=== PATIENT | female | born 1970 | race Caucasian/White ===

== ENCOUNTER 2018-09-05 03:34 | Emergency (ER) | payer MEDICAID ==
[2005-08-08 19:04] VITALS: BP 100/63
[~2018-09-05] VITALS: Ht 154.9 cm; Wt 69.1 kg
[~2018-09-05 03:34] MED LIST: CELEXA40 MG PO; ELAVIL10 MG PO; FLEXERIL10 MG PO; FORTAMET500 MG PO; LORTAB 7.5/5001 TAB PO; NOVOLOG 100U100 U/ML SQ; PERCOCET 5/321 UDTAB PO; PHENERGAN 25 TA25 MG PO; TOPAMAX 100MG100 MG PO; TYLENOL 325MG325 MG PO; VENTOLIN0.09 MG IH; XANAX0.5 MG PO; ZOLOFT100 MG PO
[2018-09-05 03:38] VITALS: TEMP 98.7
[2018-09-05 04:35] LABS: COLLECTION METHOD CLEAN CATCH
[2018-09-05 04:39] LABS: BASO # 0.1 (0.0-0.2); BASO % 0.7 % (0.0-2.0); EOS # 1.2 (0.0-0.7); EOS % 8.7 % (0-4.0); GRAN # 9.7 (1.4-6.5); GRAN % 72.2 % (42.2-75.2); HEMATOCRIT 48.7 % (37.0-47.0); LYMPH # 1.8 (1.2-3.4); LYMPH % 13.2 % (20.0-51.0); MEAN CELL VOLUME 90 fl (80.0-100.0); MEAN CORPUSCULAR HEMOGLOBIN 32 pg (27.0-31.0); MEAN CORPUSCULAR HGB CONC 35 g/dl (33.0-37.0); MEAN PLATELET VOLUME 8.9 fl (7.4-10.4); MONO # 0.6 (0.1-0.6); MONO % 4.3 % (1.7-9.3); PLATELET COUNT 339 K/mm3 (130-400); RED BLOOD COUNT 5.39 M/mm3 (4.10-5.30); REDCELL DISTRIBUTION WIDTH-CV 13.7 % (11.5-14.5)
[2018-09-05 04:53] LABS: ALBUMIN 4.4 gm/dL (3.5-5.0); BILIRUBIN,TOTAL 0.8 mg/dL (0.0-1.0); CALCIUM 9.4 mg/dL (8.4-10.2); CREATININE, serum 1.05 mg/dL (0.52-1.25); POTASSIUM 3.8 mmol/L (3.4-5.0)
[2018-09-05 05:02] LABS: BUDDING YEAST Present /hpf; MUCOUS Present /lpf; PH 5 (5-8); SQUAMOUS EPITHELIAL 20-50 /hpf; URINE APPEARANCE Cloudy; URINE BACTERIA None Seen /hpf; URINE BILIRUBIN Negative (NEGATIVE); URINE BLOOD 1+ (NEGATIVE); URINE COLOR Amber; URINE GLUCOSE Negative (NEGATIVE); URINE KETONE Trace (NEGATIVE); URINE LEUKOCYTE ESTERASE 2+ (NEGATIVE); URINE NITRATE Positive (NEGATIVE); URINE PROTEIN(semi-quant) 2+ (NEGATIVE); URINE RBC >50 /hpf
[2018-09-05 07:22] LABS: COLLECTION METHOD CATHETER
[2018-09-05] MEDS ORDERED: ZOFRAN ODT4 MG PO (07:30)
[2018-09-05] MEDS ORDERED: OMNICEF 300MG300 MG PO (07:30)
[2018-09-05 07:31] LABS: BUDDING YEAST Present /hpf; MUCOUS Present /lpf; PH 5 (5-8); SQUAMOUS EPITHELIAL 0-2 /hpf; URINE APPEARANCE Cloudy; URINE BACTERIA None Seen /hpf; URINE BILIRUBIN Negative (NEGATIVE); URINE BLOOD 1+ (NEGATIVE); URINE COLOR Amber; URINE GLUCOSE 1+ (NEGATIVE); URINE KETONE 1+ (NEGATIVE); URINE LEUKOCYTE ESTERASE 3+ (NEGATIVE); URINE NITRATE Negative (NEGATIVE); URINE PROTEIN(semi-quant) 2+ (NEGATIVE); URINE RBC 20-50 /hpf
[2018-09-05 08:30] VITALS: BP 104/62; PULSE 67
== END 2018-09-05 08:36 | disposition home or self-care (01) ==
LOC: COL.ER 03:34
PROVIDERS: Emergency Medicine
DX: K59.00 Constipation, unspecified (principal); N12 Tubulo-interstitial nephritis, not specified as acute or chronic; E11.9 Type 2 diabetes mellitus without complications; Z90.710 Acquired absence of both cervix and uterus; Z90.49 Acquired absence of other specified parts of digestive tract; Z90.89 Acquired absence of other organs
CPT/HCPCS: J0696; J2405; J7030

== ENCOUNTER 2020-01-24 15:13 | Inpatient (IN) | payer MEDICAID ==
[~2020-01-24] VITALS: Ht 154.9 cm; Wt 68.6 kg
[~2020-01-24 15:13] MED LIST changes: +OMNICEF 300MG300 MG PO; +ZOFRAN ODT4 MG PO
[2020-01-24 16:18] LABS: BASO # 0.1 (0.0-0.2); BASO % 1.5 % (0.0-2.0); EOS # 0.3 (0.0-0.7); EOS % 3.1 % (0-4.0); GRAN # 5.7 (1.4-6.5); GRAN % 66.6 % (42.2-75.2); HEMOGLOBIN 13.6 g/dl (12.5-16.0); LYMPH # 1.8 (1.2-3.4); LYMPH % 21.3 % (20.0-51.0); MEAN CELL VOLUME 90 fl (80.0-100.0); MEAN CORPUSCULAR HEMOGLOBIN 28 pg (27.0-31.0); MEAN CORPUSCULAR HGB CONC 31 g/dl (33.0-37.0); MEAN PLATELET VOLUME 9.3 fl (7.4-10.4); MONO # 0.6 (0.1-0.6); MONO % 7.3 % (1.7-9.3); PLATELET COUNT 284 K/mm3 (130-400); REDCELL DISTRIBUTION WIDTH-CV 14.4 % (11.5-14.5)
[2020-01-24 16:25] LABS: INR 1.3 (0.8-3.0); PROTHROMBIN TIME 15.1 SECONDS (9.7-12.8)
[2020-01-24 16:32] LABS: CALCIUM 9.2 mg/dL (8.4-10.2); CREATININE, serum 0.79 (0.52-1.25); POTASSIUM 3.3 mmol/L (3.4-5.0); TOTAL PROTEIN 7.2 gm/dL (6.4-8.2)
[2020-01-24 16:43] LABS: TROPONIN-I 0.014 ng/mL (0.000-0.035)
[2020-01-24] MEDS ORDERED: PROTONIX 40MG T40 MG PO (18:10)
[2020-01-24] MEDS ORDERED: DESYREL 50MG50 MG PO (18:10)
--- NOTE | 2020-01-24 19:15 | NUR ---
Received report from Odette. Seen patient awake, sitting on bed. With INT on left AC. Patient is a bit emotional and states she has anxiety and takes medication for that. She asked as well if she can go down to smoke. This nurse and Odette told the patient she can't smoke but we can ask for a nicotine patch. Patient is alert and oriented. Her home health nurse is on the bedside. Call light within reach.
--- NOTE | 2020-01-24 19:45 | NUR ---
Patient is about to have her CT of the Chest when the [facility] called this nurse saying the patient has allergic to contrast and they will not do the CT. This nurse called BRAND LEADER Mary about the allergic reaction of the patient. Patient states she had the contrast few years ago and she remembered throwing up as a reaction. Mary asked this nurse to tell the patient if it's okay to pre-medicate her before doing the CT scan and the patient agreed. Informed [facility] thru phone that Mary just ordered pre-medications to prevent the patient for vomiting and it should be good to proceed with the Chest CT.
--- NOTE | 2020-01-24 20:50 | NUR ---
Patient was back at her room via wheelchair, assisted by Risktail. Patient states she felt nauseous awhile ago but she's fine right now.
[2020-01-24 21:55] VITALS: BP 95/57; PULSE 92; TEMP 97.4
[2020-01-24] MEDS ORDERED: LYRICA 100MG C100 M1 PO (23:00)
[2020-01-24] MEDS ORDERED: MAXALT5 MG PO (23:05)
[2020-01-24] MEDS ORDERED: ZOFRAN 4MG T4 MG/TAB PO (23:06)
[2020-01-24] MEDS ORDERED: TOPAMAX 100MG100 M1 PO (23:07)
[2020-01-24 23:34] LABS: PARTIAL THROMBOPLASTIN TIME 39.6 SECONDS (26.0-37.0)
--- NOTE | 2020-01-25 00:35 | NUR ---
Heparin drip started, verified with my charge nurse, Kylah. Patient asked what's the heparin drip for. Explained to patient the result of the Chest CT that there is a thrombus or clot seen.
[2020-01-25 00:49] VITALS: BP 90/57; PULSE 99; TEMP 97.8
[2020-01-25 04:20] VITALS: BP 92/57; PULSE 98; TEMP 97.7
[2020-01-25] MEDS ORDERED: ZOFRAN 4MG T4 MG/TAB PO (04:41)
[2020-01-25] MEDS ORDERED: FLECTOR1.3% (04:42)
[2020-01-25] MEDS ORDERED: ALBUTEROL1.25 MG/3 INH (04:57)
[2020-01-25] MEDS ORDERED: ATROVENT I0.2 MG/1 M INH (04:58)
[2020-01-25] MEDS ORDERED: PROAIR DIGIHAL90 MCG INH (04:59)
[2020-01-25] MEDS ORDERED: NAPROSYN500 MG PO (05:03)
[2020-01-25 07:25] VITALS: BP 90/64; PULSE 91; TEMP 97.9
--- NOTE | 2020-01-25 07:31 | NUR ---
Endorsed patient to Jessica. Verified with her new heparin drip rate changed by pharmacy. Patient has uneventful night. No complains of shortness of breath.
[2020-01-25 08:13] LABS: BASO # 0.1 (0.0-0.2); BASO % 1.2 % (0.0-2.0); GRAN # 5.4 (1.4-6.5); GRAN % 81.9 % (42.2-75.2); HEMATOCRIT 41.3 % (37.0-47.0); HEMOGLOBIN 12.6 g/dl (12.5-16.0); LYMPH # 0.9 (1.2-3.4); LYMPH % 13.7 % (20.0-51.0); MEAN CELL VOLUME 89 fl (80.0-100.0); MEAN CORPUSCULAR HEMOGLOBIN 27 pg (27.0-31.0); MEAN CORPUSCULAR HGB CONC 31 g/dl (33.0-37.0); MEAN PLATELET VOLUME 10.1 fl (7.4-10.4); MONO # 0.2 (0.1-0.6); MONO % 2.6 % (1.7-9.3); PLATELET COUNT 239 K/mm3 (130-400); RED BLOOD COUNT 4.63 M/mm3 (4.10-5.30); REDCELL DISTRIBUTION WIDTH-CV 14.1 % (11.5-14.5)
[2020-01-25 08:21] LABS: ANION GAP 12 mmol/L (7-16); BLOOD UREA NITROGEN 10 mg/dL (7-17); CARBON DIOXIDE 20 mmol/L (22-30); CHLORIDE 108 mmol/L (98-107); CREATININE, serum 0.65 (0.52-1.25); GLUCOSE 361 mg/dL (74-106); POTASSIUM 4.1 mmol/L (3.4-5.0); SODIUM 139 mmol/L (137-145)
--- NOTE | 2020-01-25 08:24 | NUR ---
Shift report received from neon sign mechanic RN, Nate. At time of assessment, patient is sitting up awake in bed, student nurse is doing her morning assessment. This RN follows up behind student nurse to verify assessment results. Patient does not complain of pain or discomfort at the moment. Heparin is stopped at this time, per protocol. Hep XA result 0.87. Will restart infusion at 0924 and decrease by 2 ml/hr per protocol. Seizure pads provided at this time, as patient states her last seizure occurred 4 nights ago.
[2020-01-25 08:28] LABS: TROPONIN-I < 0.012 ng/mL (0.000-0.035)
--- NOTE | 2020-01-25 09:24 | NUR ---
Hep X a result 0.87 this morning. Heparin 12 ml/hr stopped at 0824 and restarted at 0924 at 10 ml/hr per protocol. Will recheck Hep xA in 6 hours.
--- NOTE | 2020-01-25 11:11 | NUR ---
ROOSEVELT met with the patient and her friend/personal property assessor, Gissell Rubio (ph#[phone]), to discuss discharge plan. The patient lives alone in [place]. She reports independence with ADLs and has a cane, walker, rolaider, and wheelchair. She also has a personal property assessor for ten hours a week from [facility]. The patient's PCP is Dr. Lizzette Lombardi and she receives her medications by delivery from [facility]. She reports no difficulties obtaining her meds. The patient does not have advanced directives in EMR, but she states that she has the documents filled out. She states that she just needs to get them notarized. ROOSEVELT informed the patient that they can get them notarized here, if Gissell brings them in. The patient states that she is designating Gissell as her DPOA-HC. The patient plans to return home and resume services with [facility] upon discharge. The patient informed me that she has separation anxiety and some PTSD. ROOSEVELT discussed talk therapy. The patient reports that she has done this in the past and was interested in a list of the different mental health providers in [place] and [place]. SW provided the patient with that list. No other additional needs at this time, but SW to continue to follow as needed.
--- NOTE | 2020-01-25 11:19 | NUR ---
Initial visit; Patient thanked It Infrastructure Engineer for looking in on her and offering spiritual care, especially keeping her in It Infrastructure Engineer's prayers.
[2020-01-25 11:22] VITALS: BP 110/72; PULSE 89; TEMP 97.8
[2020-01-25 17:51] VITALS: BP 81/51; PULSE 100; TEMP 97.9
--- NOTE | 2020-01-25 18:21 | NUR ---
Patient is currently sitting in bed, visiting with her friend who is at the bedside and who has been here for the majority of the day. Patient states her headache from earlier has subsided and she is awaiting her dinner tray. Patient's BP is still running low (90's/50's) but patient remains asymptomatic and says this is baseline for her. Patient is up independelty in the room and walking in the halls. She will be NPO at midnight tonight.
[2020-01-25 21:57] VITALS: BP 84/59; PULSE 102; TEMP 98.1
--- NOTE | 2020-01-25 22:16 | NUR ---
Pt doing well. In room with family member. Alert and oriented with VSS. Pt is ind in room. Heart and lung sounds normal. Pt denies being SOB or chest pain at this moment. Pt on hep drip running at 10/hr. Tolerating well. IV to L AC. Bowel sounds active all quadrants. PT does have BLE 1+edema. Pt NPO at midnight to have cardiac cath done in am. Pt denies needs. Call light within reach, will continue to montir
--- NOTE | 2020-01-25 22:21 | NUR ---
Pt states her BP are usually lower and this is stable for her. Hospitalist knows and states to continue to monitor
[2020-01-26] VITALS (305 sets, daily range): BP systolic 81–115; BP diastolic 53–90; PULSE 33–109; TEMP 97.3–98; O2SAT 92–100
--- NOTE | 2020-01-26 00:44 | NUR ---
Pt reports she was sitting up dina cross in bed, and then stated she felt numbness in her right leg. It is more swollen than her left. 1+pitting. pedal pulse strong and present. states she has some SOB but not chest pain, not pain radiating to arm. alert and orientee x4 and vss
--- NOTE | 2020-01-26 00:49 | NUR ---
hospitalist notifed of pt's condition. will continue to monitor
[2020-01-26 04:09] LABS: HEMATOCRIT 40.2 % (37.0-47.0); HEMOGLOBIN 12.4 g/dl (12.5-16.0); MEAN CELL VOLUME 89 fl (80.0-100.0); MEAN CORPUSCULAR HEMOGLOBIN 27 pg (27.0-31.0); MEAN CORPUSCULAR HGB CONC 31 g/dl (33.0-37.0); PLATELET COUNT 251 K/mm3 (130-400); RED BLOOD COUNT 4.53 M/mm3 (4.10-5.30); REDCELL DISTRIBUTION WIDTH-CV 14.3 % (11.5-14.5)
[2020-01-26 04:20] LABS: CALCIUM 9.4 mg/dL (8.4-10.2); CREATININE, serum 0.85 (0.52-1.25); POTASSIUM 3.5 mmol/L (3.4-5.0)
--- NOTE | 2020-01-26 13:49 | NUR ---
SEE MERGE DOCUMENTATION FOR MEDICATION ADMINISTRATION AND INTRA POST PROCEDURE SEDATION ASSESSMENTS.
--- NOTE | 2020-01-26 15:40 | NUR ---
During morning assessment patient A/O, Complained of SOB. Patient had blood pressure of 81/60. Dr. Hooks and Dr. Hernández was informed. Dr. Hernández put an order in for 250Ml/hr BOLUS. Dr Hooks requested the fluid to be stopped. Fluid was discontinued few minutes after it was started. Patient HepXA was elevated to 0.93. Heparin drip discontinued per protocol. both doctors was informed. Patient signed consent form for Heart catherization. Dr Hooks approved lasix 20mg administeration. Patient was transferred to ICU from laboratory equipment cleaner. Lining Ironer sales support representative said patient is not doing good at this time and PCI will be performed on Friday on the patient.
--- NOTE | 2020-01-26 17:30 | NUR ---
I reviewed chest x ray on [facility] and PICC tip location is right atrium. PICC dressing change done with sterile technique with insertion site cleansed with chloraprep x 1, catheter pulled back 2 cm to 1 cm marking on catheter. chlorhexidine impregnated disk applied, skin prep, stat lock, and tegaderm applied. RN informed.
--- NOTE | 2020-01-26 19:31 | NUR ---
Report given to Saturnino WOODS and care transfered.
[2020-01-27] VITALS (651 sets, daily range): BP systolic 95–126; BP diastolic 58–94; PULSE 86–99; TEMP 97.6–98.6; O2SAT 90–100
[2020-01-27 06:24] LABS: BASO % 0.2 % (0.0-2.0); GRAN # 7.3 (1.4-6.5); HEMATOCRIT 40.5 % (37.0-47.0); HEMOGLOBIN 12.3 g/dl (12.5-16.0); LYMPH # 1.5 (1.2-3.4); LYMPH % 16.2 % (20.0-51.0); MEAN CELL VOLUME 89 fl (80.0-100.0); MEAN CORPUSCULAR HEMOGLOBIN 27 pg (27.0-31.0); MEAN CORPUSCULAR HGB CONC 30 g/dl (33.0-37.0); MEAN PLATELET VOLUME 10.3 fl (7.4-10.4); MONO # 0.5 (0.1-0.6); PLATELET COUNT 232 K/mm3 (130-400); RED BLOOD COUNT 4.53 M/mm3 (4.10-5.30); REDCELL DISTRIBUTION WIDTH-CV 14.3 % (11.5-14.5)
[2020-01-27 06:34] LABS: CALCIUM 9.6 mg/dL (8.4-10.2); CREATININE, serum 0.81 (0.52-1.25); POTASSIUM 3.7 mmol/L (3.4-5.0)
--- NOTE | 2020-01-27 09:54 | NUR ---
RAISSA student attended clinical rounds with the team. The patient is to have a cardiac cath with sent placement tomorrow, Friday, 01/28. on site services specialist will continue to monitor for discharge recommendations.
--- NOTE | 2020-01-27 11:26 | NUR ---
First visit from the concessions manager. No needs right now.
[2020-01-27] MEDS ORDERED: NORCO 325 MG-51 TAB PO (17:18)
--- NOTE | 2020-01-27 19:15 | NUR ---
Anesthesia bedside to eval pt for tomorrows cardiac cath.
[2020-01-28] VITALS (372 sets, daily range): BP systolic 99–106; BP diastolic 68–86; PULSE 78–99; TEMP 97.6–98.4; O2SAT 88–100
[2020-01-28 05:09] LABS: BASO # 0.1 (0.0-0.2); BASO % 1.1 % (0.0-2.0); EOS # 0.2 (0.0-0.7); EOS % 1.9 % (0-4.0); GRAN # 7.8 (1.4-6.5); GRAN % 66.1 % (42.2-75.2); HEMATOCRIT 42.9 % (37.0-47.0); HEMOGLOBIN 13.6 g/dl (12.5-16.0); LYMPH # 2.9 (1.2-3.4); LYMPH % 24.8 % (20.0-51.0); MEAN CELL VOLUME 86 fl (80.0-100.0); MEAN CORPUSCULAR HEMOGLOBIN 27 pg (27.0-31.0); MEAN CORPUSCULAR HGB CONC 32 g/dl (33.0-37.0); MEAN PLATELET VOLUME 9.6 fl (7.4-10.4); MONO # 0.7 (0.1-0.6); MONO % 5.5 % (1.7-9.3); PLATELET COUNT 274 K/mm3 (130-400); RED BLOOD COUNT 4.97 M/mm3 (4.10-5.30); REDCELL DISTRIBUTION WIDTH-CV 14.2 % (11.5-14.5)
[2020-01-28 05:24] LABS: ALBUMIN 4.3 gm/dL (3.5-5.0); BILIRUBIN,TOTAL 1.7 mg/dL (0.0-1.0); CALCIUM 10.3 mg/dL (8.4-10.2); CREATININE, serum 0.8 (0.52-1.25); TOTAL PROTEIN 7.5 gm/dL (6.4-8.2)
--- NOTE | 2020-01-28 08:30 | NUR ---
PICC intact right upper arm. Chlorhexidine disc had reddish drainage. With sterile technique right upper arm PICC dressing change done with insertion site cleansed with ChloraPrep 1, chlorhexidine impregnated disc applied, skin prep, StatLock, and Tegaderm applied. No signs or symptoms of IV complications noted. No concerns voiced.
--- NOTE | 2020-01-28 10:00 | NUR ---
DR. GIBBS COMES TO SEE PATIENT AT THIS TIME. THEY DISCUSS HOLDING OFF ON HEART CATH AND TRANSFERRING TO FOR FURTHER TREATMENT.
--- NOTE | 2020-01-28 11:25 | NUR ---
The patient is to transfer to [facility] for further care this day. There are no additional needs at this time.
--- NOTE | 2020-01-28 13:00 | NUR ---
Report called to CHUCK Blas in CICU at [facility].
--- NOTE | 2020-01-28 13:20 | NUR ---
[facility] here to get patient. Report given to Antony Jet Pilot. Patient leaves with [facility] at this time.
== END 2020-01-28 13:20 | disposition home or self-care (01) | DRG 640 ==
LOC: COL.ER 15:13 → MEDICAL 16:52 → ICU 01-26 15:27
PROVIDERS: Emergency Medicine; Nurse Practitioner Family; Physician Assistant; ADMIT Student in an Organized Health Care Education/Training Program
PROC: 5A1D70Z Performance of Urinary Filtration, Intermittent, Less than 6 Hours Per Day (ICD-10-PCS; principal; 2020-01-25)
DX: E87.70 Fluid overload, unspecified (principal); N18.6 End stage renal disease; I16.1 Hypertensive emergency; I12.0 Hypertensive chronic kidney disease with stage 5 chronic kidney disease or end stage renal disease; J90 Pleural effusion, not elsewhere classified; D63.1 Anemia in chronic kidney disease; E66.9 Obesity, unspecified; I51.7 Cardiomegaly; F91.9 Conduct disorder, unspecified; Z56.0 Unemployment, unspecified; Z91.15 Patient's noncompliance with renal dialysis; Z87.891 Personal history of nicotine dependence
CPT/HCPCS: 99222-AI; 99233-AI; 99239; A4314; C1751; C1894; C8924; J1200; J1644; J1650; J1815; J1940; J2060; J2250; J2405; J2930; J3010; J3480; J7050; J7512; Q9967

== ENCOUNTER 2020-10-12 20:45 | Emergency (ER) | payer MEDICAID ==
[2005-08-08 19:04] VITALS: BP 100/63
[~2020-10-12 20:45] MED LIST changes: +ALBUTEROL1.25 MG/3 INH; +ATROVENT I0.2 MG/1 M INH; +DESYREL 50MG50 MG PO; +FLECTOR1.3%; +LYRICA 100MG C100 M1 PO; +MAXALT5 MG PO; +NAPROSYN500 MG PO; +NORCO 325 MG-51 TAB PO; +PROAIR DIGIHAL90 MCG INH; +PROTONIX 40MG T40 MG PO; +TOPAMAX 100MG100 M1 PO; +ZOFRAN 4MG T4 MG/TAB PO
[2020-10-12 20:50] VITALS: TEMP 97.6
[2020-10-12 22:04] LABS: BASO # 0.1 (0.0-0.2); BASO % 0.6 % (0.0-2.0); EOS # 0.2 (0.0-0.7); EOS % 1.4 % (0-4.0); HEMATOCRIT 38.2 % (37.0-47.0); HEMOGLOBIN 12.4 g/dl (12.5-16.0); LYMPH # 2.3 (1.2-3.4); LYMPH % 15.5 % (20.0-51.0); MEAN CELL VOLUME 83 fl (80.0-100.0); MEAN CORPUSCULAR HEMOGLOBIN 27 pg (27.0-31.0); MEAN CORPUSCULAR HGB CONC 33 g/dl (33.0-37.0); MEAN PLATELET VOLUME 9.6 fl (7.4-10.4); PLATELET COUNT 279 K/mm3 (130-400); RED BLOOD COUNT 4.63 M/mm3 (4.10-5.30); REDCELL DISTRIBUTION WIDTH-CV 14.9 % (11.5-14.5)
[2020-10-12] MEDS ORDERED: LASIX 40MG TABL40 MG PO (22:57)
[2020-10-12] MEDS ORDERED: ATIVAN 0.50.5 MG/TAB PO (22:59)
[2020-10-12] MEDS ORDERED: K-DUR20 MEQ PO (23:06)
[2020-10-12] MEDS ORDERED: CORDARONE200 MG/TAB PO (23:07)
[2020-10-12] MEDS ORDERED: ASPIRIN 81M81 MG/TA2 PO (23:07)
[2020-10-12] MEDS ORDERED: ALDACTONE 25MG25 M1 PO (23:08)
[2020-10-12] MEDS ORDERED: PRINIVIL2.5 MG PO (23:08)
[2020-10-12] MEDS ORDERED: SINGULAIR 110 MG/TAB PO (23:09)
[2020-10-12] MEDS ORDERED: COUMADIN 6MG6 MG/TAB PO (23:12)
[2020-10-12] MEDS ORDERED: NICODERM C21 MG/PATC TD (23:12)
[2020-10-12] MEDS ORDERED: TOPROL XL 25MG25 MG PO (23:13)
[2020-10-12] MEDS ORDERED: [UNRECOGNIZED DRUG - OTHER] IV (23:14)
[2020-10-12 23:58] LABS: ALANINE AMINOTRANSFERASE 17 U/L (4-34); ALBUMIN 4.5 gm/dL (3.5-5.0); ALKALINE PHOSPHATASE 69 U/L (50-136); ANION GAP 12 mmol/L (7-16); AST,SGOT 25 U/L (15-37); BILIRUBIN,TOTAL 0.5 mg/dL (0.0-1.0); BLOOD UREA NITROGEN 37 mg/dL (7-17); CALCIUM 8.9 mg/dL (8.4-10.2); CARBON DIOXIDE 22 mmol/L (22-30); CHLORIDE 100 mmol/L (98-107); CREATININE, serum 3.27 (0.52-1.25); GLUCOSE 159 mg/dL (74-106); POTASSIUM 3.9 mmol/L (3.4-5.0); SODIUM 134 mmol/L (137-145); TOTAL PROTEIN 7.6 gm/dL (6.4-8.2)
[2020-10-13 00:10] LABS: TROPONIN-I < 0.012 ng/mL (0.000-0.035)
[2020-10-13 00:56] LABS: COLLECTION METHOD CLEAN CATCH
[2020-10-13 01:11] LABS: HYALINE CAST >12 /lpf; MUCOUS Present /lpf; PH 5 (5-8); URINE APPEARANCE Cloudy; URINE BACTERIA Rare /hpf; URINE BILIRUBIN Negative (NEGATIVE); URINE BLOOD Negative (NEGATIVE); URINE COLOR Yellow; URINE GLUCOSE Negative (NEGATIVE); URINE KETONE Negative (NEGATIVE); URINE LEUKOCYTE ESTERASE Trace (NEGATIVE); URINE NITRATE Negative (NEGATIVE); URINE PROTEIN(semi-quant) 1+ (NEGATIVE); URINE UROBILINOGEN Negative (NEGATIVE)
[2020-10-13 02:20] VITALS: BP 81/61; PULSE 67
[2020-10-13] MEDS ORDERED: MACROBID 1100 MG/CAP PO (02:31)
== END 2020-10-13 02:20 | disposition left against medical advice (07) ==
LOC: COL.ER 20:45
PROVIDERS: Emergency Medicine
DX: I95.9 Hypotension, unspecified (principal); I25.10 Atherosclerotic heart disease of native coronary artery without angina pectoris; J45.909 Unspecified asthma, uncomplicated; I50.9 Heart failure, unspecified; I25.2 Old myocardial infarction; G40.909 Epilepsy, unspecified, not intractable, without status epilepticus; F17.210 Nicotine dependence, cigarettes, uncomplicated; Z86.73 Personal history of transient ischemic attack (TIA), and cerebral infarction without residual deficits; Z90.710 Acquired absence of both cervix and uterus; Z88.1 Allergy status to other antibiotic agents; Z79.82 Long term (current) use of aspirin; Z79.01 Long term (current) use of anticoagulants; Z95.0 Presence of cardiac pacemaker; Z95.9 Presence of cardiac and vascular implant and graft, unspecified
CPT/HCPCS: J7030

== ENCOUNTER 2021-02-21 11:19 | Emergency (ER) | payer MEDICAID ==
[2005-08-08 19:04] VITALS: BP 100/63
[~2021-02-21] VITALS: Ht 154.9 cm; Wt 66.8 kg
[~2021-02-21 11:19] MED LIST changes: +ALDACTONE 25MG25 M1 PO; +ASPIRIN 81M81 MG/TA2 PO; +ATIVAN 0.50.5 MG/TAB PO; +CORDARONE200 MG/TAB PO; +COUMADIN 6MG6 MG/TAB PO; +K-DUR20 MEQ PO; +LASIX 40MG TABL40 MG PO; +MACROBID 1100 MG/CAP PO; +NICODERM C21 MG/PATC TD; +PRINIVIL2.5 MG PO; +SINGULAIR 110 MG/TAB PO; +TOPROL XL 25MG25 MG PO; +[UNRECOGNIZED DRUG - OTHER] IV
[2021-02-21 11:27] VITALS: TEMP 97
[2021-02-21 12:04] LABS: ALANINE AMINOTRANSFERASE 38 U/L (4-34); ALBUMIN 4.4 gm/dL (3.5-5.0); ALKALINE PHOSPHATASE 79 U/L (50-136); ANION GAP 9 mmol/L (7-16); AST,SGOT 39 U/L (15-37); BILIRUBIN,TOTAL 0.8 mg/dL (0.0-1.0); BLOOD UREA NITROGEN 12 mg/dL (7-17); CALCIUM 9.9 mg/dL (8.4-10.2); CARBON DIOXIDE 31 mmol/L (22-30); CHLORIDE 98 mmol/L (98-107); GLUCOSE 158 mg/dL (74-106); INR 2.8 (0.8-3.0); LIPASE 58 U/L (23-300); MAGNESIUM 2.1 mg/dL (1.6-2.3); POTASSIUM 3.3 mmol/L (3.4-5.0); PROTHROMBIN TIME 31.7 SECONDS (9.7-12.8); SODIUM 138 mmol/L (137-145); TOTAL PROTEIN 7.9 gm/dL (6.4-8.2)
[2021-02-21 12:17] LABS: TROPONIN-I < 0.012 ng/mL (0.000-0.035)
[2021-02-21 12:20] LABS: BASO # 0.2 (0.0-0.2); BASO % 1.7 % (0.0-2.0); EOS # 0.2 (0.0-0.7); EOS % 2.4 % (0-4.0); GRAN # 6.9 (1.4-6.5); GRAN % 69.8 % (42.2-75.2); HEMATOCRIT 39.6 % (37.0-47.0); HEMOGLOBIN 12.6 g/dl (12.5-16.0); LYMPH # 1.9 (1.2-3.4); MEAN CELL VOLUME 84 fl (80.0-100.0); MEAN CORPUSCULAR HEMOGLOBIN 27 pg (27.0-31.0); MEAN CORPUSCULAR HGB CONC 32 g/dl (33.0-37.0); MEAN PLATELET VOLUME 9.2 fl (7.4-10.4); MONO # 0.7 (0.1-0.6); MONO % 6.7 % (1.7-9.3); PLATELET COUNT 317 K/mm3 (130-400); RED BLOOD COUNT 4.73 M/mm3 (4.10-5.30); REDCELL DISTRIBUTION WIDTH-CV 14.7 % (11.5-14.5)
[2021-02-21 14:59] VITALS: BP 120/69; PULSE 59
== END 2021-02-21 13:30 | disposition left against medical advice (07) ==
LOC: COL.ER 11:19
PROVIDERS: Emergency Medicine
DX: I25.3 Aneurysm of heart (principal); I50.20 Unspecified systolic (congestive) heart failure; I25.10 Atherosclerotic heart disease of native coronary artery without angina pectoris; K21.9 Gastro-esophageal reflux disease without esophagitis; G40.909 Epilepsy, unspecified, not intractable, without status epilepticus; I50.9 Heart failure, unspecified; J45.909 Unspecified asthma, uncomplicated; F41.9 Anxiety disorder, unspecified; G47.00 Insomnia, unspecified; Z87.891 Personal history of nicotine dependence; Z90.89 Acquired absence of other organs; Z90.710 Acquired absence of both cervix and uterus; Z95.0 Presence of cardiac pacemaker; Z95.5 Presence of coronary angioplasty implant and graft; Z86.79 Personal history of other diseases of the circulatory system; Z90.49 Acquired absence of other specified parts of digestive tract; Z88.1 Allergy status to other antibiotic agents; Z91.040 Latex allergy status; Z91.041 Radiographic dye allergy status; Z79.51 Long term (current) use of inhaled steroids; Z79.82 Long term (current) use of aspirin; Z79.01 Long term (current) use of anticoagulants

== ENCOUNTER 2022-01-03 13:54 | Inpatient (IN) | payer MEDICAID ==
[~2022-01-03] VITALS: Ht 154.9 cm; Wt 72.2 kg
[~2022-01-03 13:54] MED LIST changes: +CENA K20 MEQ/15 PO; -K-DUR20 MEQ PO
[2022-01-03 14:31] LABS: BASO # 0.1 K/mm3 (0.0-0.2); BASO % 1.1 % (0.0-2.0); EOS # 0.1 K/mm3 (0.0-0.7); GRAN # 10.1 K/mm3 (1.4-6.5); GRAN % 86.4 % (42.2-75.2); HEMOGLOBIN 9.6 g/dl (12.5-16.0); LYMPH # 0.7 K/mm3 (1.2-3.4); LYMPH % 5.9 % (20.0-51.0); MEAN CELL VOLUME 72 fl (80.0-100.0); MEAN CORPUSCULAR HEMOGLOBIN 21 pg (27-31); MEAN CORPUSCULAR HGB CONC 29 g/dl (33.0-37.0); MEAN PLATELET VOLUME 10.1 fl (7.4-10.4); MONO # 0.6 K/mm3 (0.1-0.6); MONO % 5.1 % (1.7-9.3); PLATELET COUNT 339 K/mm3 (130-400); RED BLOOD COUNT 4.58 M/mm3 (4.10-5.30); REDCELL DISTRIBUTION WIDTH-CV 17.2 % (11.5-14.5)
[2022-01-03 14:59] LABS: ALANINE AMINOTRANSFERASE 36 U/L (0-55); ALKALINE PHOSPHATASE 89 U/L (40-150); ANION GAP 13 mmol/L (7-16); AST,SGOT 51 U/L (5-34); BLOOD UREA NITROGEN 18 mg/dL (10-20); CALCIUM 8.5 mg/dL (8.4-10.2); CARBON DIOXIDE 23 mmol/L (22-29); CHLORIDE 99 mmol/L (98-107); CREATININE, serum 1.01 mg/dL (0.57-1.11); POTASSIUM 3.6 mmol/L (3.5-4.5); SODIUM 135 mmol/L (136-145); TOTAL PROTEIN 7.4 gm/dL (6.2-8.1)
[2022-01-03 15:01] LABS: GLUCOSE 402 mg/dL (70-99)
[2022-01-03 15:06] LABS: TROPONIN-I < 0.010 ng/mL (0.00-0.033)
[2022-01-03] MEDS ORDERED: REQUIP0.25 MG PO (16:05)
[2022-01-03] MEDS ORDERED: DEMADEX 20MG20 M1 PO (16:05)
[2022-01-03] MEDS ORDERED: ZAROXOLYN 2.52.5 MG PO (16:05)
[2022-01-03] MEDS ORDERED: ZANAFLEX2 MG PO (16:06)
[2022-01-03 16:59] VITALS: BP 124/65; PULSE 81; TEMP 97.6
[2022-01-03] MEDS ORDERED: NORCO 325 MG-51 TAB PO (19:10)
[2022-01-03] MEDS ORDERED: PHENERGAN 25 TA25 MG PO (19:10)
[2022-01-03] MEDS ORDERED: NITROSTAT0.4 MG/TAB SL (19:11)
[2022-01-03 19:23] LABS: INR 2.2 (0.8-3.0)
[2022-01-03 19:32] LABS: CALCIUM 8.5 mg/dL (8.4-10.2); CREATININE, serum 1.15 mg/dL (0.57-1.11); MAGNESIUM 1.7 mg/dL (1.6-2.6); POTASSIUM 4.3 mmol/L (3.5-4.5)
[2022-01-03 19:53] VITALS: BP 108/56; PULSE 84; TEMP 98.1
--- NOTE | 2022-01-03 23:34 | NUR ---
Patient assessed around 2114. Alert and oriented, and able to make needs known. Denies pain and discomfort. Peripheral INT to right wrist and left forearm. Lasix drip running to right wrist per orers. Has port to right chest with milrinone running per home orders. Voices no questions, needs, or concerns during assessement. In bed with call light within reach.
[2022-01-03 23:55] VITALS: BP 102/57; PULSE 81; TEMP 98.1
[2022-01-04 00:12] LABS: COLLECTION METHOD CLEAN CATCH
[2022-01-04 00:20] LABS: MUCOUS Present (NOT PRESENT); PH 6 (5-8); SQUAMOUS EPITHELIAL 0-2 /hpf (0-10); URINE APPEARANCE Clear (CLEAR/HAZY); URINE BACTERIA None Seen /hpf (NONE SEEN); URINE BILIRUBIN Negative (NEGATIVE); URINE BLOOD Negative (NEGATIVE); URINE COLOR Yellow (YELLOW); URINE GLUCOSE 3+ (NEGATIVE); URINE KETONE Negative (NEGATIVE); URINE LEUKOCYTE ESTERASE Negative (NEGATIVE); URINE NITRATE Negative (NEGATIVE); URINE PROTEIN(semi-quant) Negative (NEGATIVE); URINE RBC 0-2 /hpf (0-2); URINE UROBILINOGEN Negative (NEGATIVE)
--- NOTE | 2022-01-04 00:21 | NUR ---
Patient has not had any urine output so far this shift. Does not feel like she has to urinate, and was not able to when trying to go to the bathroom. Bladder scan performed showing greater than 650 mls of urine in bladder. Spoke with ANETTE Funez ok to place indwelling cleveland catheter. 800 mls of urine output upon insertion of catheter. Cath secure in place. Tolerated well.
[2022-01-04 04:46] VITALS: BP 114/68; PULSE 74; TEMP 98.7
--- NOTE | 2022-01-04 05:46 | NUR ---
Continues on Lasix drip per orders. Reports she doesn't feel like it is helping much with edema, but is not having any shortness of breath anymore. Voices no questions, needs, or concerns at this time. In bed with call light within reach.
[2022-01-04 06:04] LABS: BASO # 0.2 K/mm3 (0.0-0.2); BASO % 1.3 % (0.0-2.0); EOS # 0.2 K/mm3 (0.0-0.7); EOS % 1.9 % (0.0-4.0); GRAN % 77.9 % (42.2-75.2); LYMPH # 1.4 K/mm3 (1.2-3.4); LYMPH % 11.3 % (20.0-51.0); MEAN CELL VOLUME 73 fl (80.0-100.0); MEAN CORPUSCULAR HGB CONC 28 g/dl (33.0-37.0); MEAN PLATELET VOLUME 10.1 fl (7.4-10.4); MONO # 0.9 K/mm3 (0.1-0.6); MONO % 6.7 % (1.7-9.3); PLATELET COUNT 333 K/mm3 (130-400); REDCELL DISTRIBUTION WIDTH-CV 17.4 % (11.5-14.5)
[2022-01-04 06:23] LABS: HEMATOCRIT 33.4 % (37.0-47.0); HEMOGLOBIN 9.5 g/dl (12.5-16.0); MEAN CORPUSCULAR HEMOGLOBIN 21 pg (27-31)
[2022-01-04 06:24] LABS: CALCIUM 8.7 mg/dL (8.4-10.2); CREATININE, serum 0.89 mg/dL (0.57-1.11); POTASSIUM 3.7 mmol/L (3.5-4.5)
--- NOTE | 2022-01-04 08:59 | NUR ---
Patient sitting in bed upon entering the room, sister is at the bedside. Patient has no concerns/complaints this morning and appears to be doing well. Swelling in legs and abdomen appears to have decreased as compared to yesterday. Bilateral bases of the lungs also sound better as compared to yesterday; Crackles still present, but not as coarse. Patient has cleveland in place and it is draining well. IV lasix gtt still running at the ordered rate.
--- NOTE | 2022-01-04 09:26 | NUR ---
Initial visit; Patient thanked Tram Driver for looking in on her and shared with Tram Driver that she is a Picture Booker. Tram Driver requested that she keep her in her prayers. Tram Driver offered God's blessings.
[2022-01-04 09:56] VITALS: BP 94/52; PULSE 77; TEMP 98.9
--- NOTE | 2022-01-04 10:05 | NUR ---
Rigger Apprentice met with patient to discuss discharge planning and her sister, Gissell (ph#[phone]) is at bedside. Patient lives alone in [place] and sees Dr. Lombardi for primary care. Patient has medications delivered to her home by [facility] with no difficulties. Patient has a walker, rollator, and wheelchair at home but does not normally have to use them. Patient reports she has a service dog at home named John. Patient reports independence with ADLS and reports independence with ADLS. Patient advised her sister, Gissell is her DPOA-HC. Patient has two children: Gracia and Phaunel. Discharge Plan: Home
[2022-01-04 10:27] LABS: MAGNESIUM 1.7 mg/dL (1.6-2.6); POTASSIUM 4.4 mmol/L (3.5-4.5)
[2022-01-04 11:26] VITALS: BP 97/48; PULSE 71; TEMP 97.9
[2022-01-04 17:02] VITALS: BP 97/68; PULSE 78; TEMP 98
--- NOTE | 2022-01-04 18:07 | NUR ---
Patient has done very well today, w/ no complaints or concerns expressed. Orourke is still in place and draining properly. Lasix gtt remains running at ordered rate.
[2022-01-04 19:35] VITALS: BP 97/55; PULSE 79; TEMP 98.3
--- NOTE | 2022-01-04 19:56 | NUR ---
Patient assessed around 193. Alert and oriented, and able to make needs known. Denies SOB and dyspnea, stating she can breathe much better now. LS CTA. HRR. Telemetry in place. BSAx4. Indwelling cleveland catheter with clear yellow urine. Requested catheter to come out. Spoke to ANDREA Reyes, and was ok with catheter being taken out. Catheter removed, tolerated well. 1+ edema BLE. Bruising to forehead and LUE. Voices no further questions, needs, or concerns at this time. In bed with call light within reach. Sister at bedside.
[2022-01-05 01:01] VITALS: BP 106/59; PULSE 75; TEMP 98
[2022-01-05 04:33] VITALS: BP 96/57; PULSE 74; TEMP 98.4
--- NOTE | 2022-01-05 05:29 | NUR ---
Patient has not have the urge to use the bathroom since catheter was pulled out. Had patient try to, and voided 150 mls of clear yellow urine. Post void bladder scan revealed greater than 450 ml of urine in bladder. Called ANDREA Reyes, order received to straight cath. Straight cathed with a result of 500 mls of urine return around 0300. Continues on Lasix drip per orders. Voices no further questions, needs, or concerns at this time. In bed with call light within reach.
[2022-01-05 06:04] LABS: MEAN CELL VOLUME 74 fl (80.0-100.0); MEAN CORPUSCULAR HGB CONC 27 g/dl (33.0-37.0); MEAN PLATELET VOLUME 10.4 fl (7.4-10.4); PLATELET COUNT 332 K/mm3 (130-400); RED BLOOD COUNT 3.65 M/mm3 (4.10-5.30); REDCELL DISTRIBUTION WIDTH-CV 17.1 % (11.5-14.5)
[2022-01-05 06:16] LABS: HEMOGLOBIN 7.4 g/dl (12.5-16.0); MEAN CORPUSCULAR HEMOGLOBIN 20 pg (27-31)
[2022-01-05 06:18] LABS: ALBUMIN 2.8 gm/dL (3.5-5.0); CALCIUM 8.8 mg/dL (8.4-10.2); CREATININE, serum 0.95 mg/dL (0.57-1.11); MAGNESIUM 1.9 mg/dL (1.6-2.6); POTASSIUM 3.8 mmol/L (3.5-4.5)
[2022-01-05 06:27] LABS: BASO # 0.1 K/mm3 (0.0-0.2); BASO % 0.9 % (0.0-2.0); EOS # 0.3 K/mm3 (0.0-0.7); EOS % 1.7 % (0.0-4.0); GRAN # 12.1 K/mm3 (1.4-6.5); GRAN % 81.3 % (42.2-75.2); LYMPH # 1.4 K/mm3 (1.2-3.4); MONO % 6.4 % (1.7-9.3)
[2022-01-05 08:00] VITALS: BP 103/58; PULSE 84; TEMP 98.1
--- NOTE | 2022-01-05 08:00 | NUR ---
Patient sitting up in bed A&Ox4. VSS. IV CDI fluids infusing. Denies pain and discomfort. Patient states that she has sensation of needing to void, nurse assessed with PRV and patient retaining urine. No further needs expressed. Call light within reach
[2022-01-05 08:35] LABS: INR 3.4 (0.8-3.0); PROTHROMBIN TIME 38.6 SECONDS (9.7-12.8)
[2022-01-05] MEDS ORDERED: PACERONE100 MG PO (10:21)
[2022-01-05] MEDS ORDERED: LASIX 40MG TABL40 MG PO (10:23)
[2022-01-05] MEDS ORDERED: GLUCOPHAGE500 MG/TAB PO (10:23)
[2022-01-05] MEDS ORDERED: OMNICEF 300MG300 MG PO (10:26)
[2022-01-05 10:57] VITALS: BP 102/55; PULSE 75; TEMP 98.4
[2022-01-05 15:26] LABS: HEMATOCRIT 32.2 % (37.0-47.0); HEMOGLOBIN 9.2 g/dl (12.5-16.0)
--- NOTE | 2022-01-05 15:56 | NUR ---
Discharge paperwork reviewed with the patient. Patient verbalized an understanding to follow doctors orders. IV removed, tip intact. Central line RT chest, PT own med, CDI. Doctor aware. Patient independent in the room. Denies pain and discomfort. No further needs expressed. Patient taken by wheelchair to the ED entrance.
--- NOTE | 2022-01-05 16:21 | NUR ---
Patient was established with [facility] previously. DC orders faxed to [facility].
== END 2022-01-05 15:55 | disposition home health service (06) | DRG 291 ==
LOC: COL.ER 13:54 → MEDICAL 15:04
PROVIDERS: Emergency Medicine; Nurse Practitioner; Physician Assistant; ADMIT Internal Medicine
DX: I11.0 Hypertensive heart disease with heart failure (principal); I50.23 Acute on chronic systolic (congestive) heart failure; I24.0 Acute coronary thrombosis not resulting in myocardial infarction; I25.3 Aneurysm of heart; I25.10 Atherosclerotic heart disease of native coronary artery without angina pectoris; E11.9 Type 2 diabetes mellitus without complications; M79.7 Fibromyalgia; G40.909 Epilepsy, unspecified, not intractable, without status epilepticus; J45.909 Unspecified asthma, uncomplicated; I48.91 Unspecified atrial fibrillation; K21.9 Gastro-esophageal reflux disease without esophagitis; G47.00 Insomnia, unspecified; F41.9 Anxiety disorder, unspecified; F17.210 Nicotine dependence, cigarettes, uncomplicated; I08.1 Rheumatic disorders of both mitral and tricuspid valves; E11.65 Type 2 diabetes mellitus with hyperglycemia; G43.909 Migraine, unspecified, not intractable, without status migrainosus; I25.5 Ischemic cardiomyopathy; E78.5 Hyperlipidemia, unspecified; R94.31 Abnormal electrocardiogram [ECG] [EKG]; K76.1 Chronic passive congestion of liver; D72.829 Elevated white blood cell count, unspecified; D64.9 Anemia, unspecified; R33.9 Retention of urine, unspecified; Z20.822 Contact with and (suspected) exposure to COVID-19; Z95.810 Presence of automatic (implantable) cardiac defibrillator; I25.2 Old myocardial infarction; Z86.73 Personal history of transient ischemic attack (TIA), and cerebral infarction without residual deficits; Z95.0 Presence of cardiac pacemaker; Z79.01 Long term (current) use of anticoagulants; Z79.82 Long term (current) use of aspirin
CPT/HCPCS: 99223-AI; 99233-AI; 99239; J0456; J0696; J1815; J1940; J7050

== ENCOUNTER 2022-01-07 13:10 | Inpatient (IN) | payer MEDICAID ==
[~2022-01-07] VITALS: Ht 154.9 cm; Wt 63.7 kg
[~2022-01-07 13:10] MED LIST changes: +DEMADEX 20MG20 M1 PO; +GLUCOPHAGE500 MG/TAB PO; +NITROSTAT0.4 MG/TAB SL; +PACERONE100 MG PO; +REQUIP0.25 MG PO; +ZANAFLEX2 MG PO; +ZAROXOLYN 2.52.5 MG PO
[2022-01-07 14:31] LABS: BASO # 0.2 K/mm3 (0.0-0.2); BASO % 0.8 % (0.0-2.0); EOS # 0.1 K/mm3 (0.0-0.7); EOS % 0.3 % (0.0-4.0); GRAN # 16.4 K/mm3 (1.4-6.5); GRAN % 85.9 % (42.2-75.2); LYMPH # 1.1 K/mm3 (1.2-3.4); LYMPH % 5.6 % (20.0-51.0); MEAN CELL VOLUME 74 fl (80.0-100.0); MEAN CORPUSCULAR HGB CONC 28 g/dl (33.0-37.0); MEAN PLATELET VOLUME 10.2 fl (7.4-10.4); MONO # 1.2 K/mm3 (0.1-0.6); MONO % 6.4 % (1.7-9.3); PLATELET COUNT 422 K/mm3 (130-400); RED BLOOD COUNT 4.26 M/mm3 (4.10-5.30)
[2022-01-07 14:34] LABS: HEMATOCRIT 31.4 % (37.0-47.0); HEMOGLOBIN 8.9 g/dl (12.5-16.0); MEAN CORPUSCULAR HEMOGLOBIN 21 pg (27-31)
[2022-01-07 14:48] LABS: ALBUMIN 2.9 gm/dL (3.5-5.0); BILIRUBIN,TOTAL 3.1 mg/dL (0.2-1.2); CALCIUM 8.8 mg/dL (8.4-10.2); CREATININE, serum 1.05 mg/dL (0.57-1.11); TOTAL PROTEIN 7.6 gm/dL (6.2-8.1)
[2022-01-07 14:54] LABS: TROPONIN-I 0.016 ng/mL (0.00-0.033)
[2022-01-07 17:18] VITALS: BP 92/48; PULSE 83; TEMP 98.4
[2022-01-07] MEDS ORDERED: DEMADEX 20MG20 M1 PO (19:23)
[2022-01-07] MEDS ORDERED: VITAMIN D31000 I1 PO (19:25)
[2022-01-07] MEDS ORDERED: UBRELVY50 MG PO (19:27)
[2022-01-07] MEDS ORDERED: LAXATIVE FOR WOM5 MG PO (19:33)
[2022-01-07] MEDS ORDERED: LIDODERM 5% PATC1 EA TP (19:34)
[2022-01-07 20:30] VITALS: BP 157/70; BP 94/50; PULSE 83; TEMP 98.3
[2022-01-07 20:37] LABS: INR 1.5 (0.8-3.0); PROTHROMBIN TIME 16.8 SECONDS (9.7-12.8)
[2022-01-07 22:01] LABS: MAGNESIUM 2.1 mg/dL (1.6-2.6)
[2022-01-07 22:05] LABS: POTASSIUM 2.9 mmol/L (3.5-4.5)
[2022-01-08] VITALS (8 sets, daily range): BP systolic 82–107; BP diastolic 46–57; PULSE 64–86; TEMP 97.6–98.5
[2022-01-08 06:50] LABS: BASO # 0.2 K/mm3 (0.0-0.2); BASO % 1.3 % (0.0-2.0); EOS # 0.3 K/mm3 (0.0-0.7); EOS % 1.9 % (0.0-4.0); GRAN # 10.8 K/mm3 (1.4-6.5); GRAN % 79.6 % (42.2-75.2); LYMPH # 1.3 K/mm3 (1.2-3.4); LYMPH % 9.8 % (20.0-51.0); MEAN CELL VOLUME 73 fl (80.0-100.0); MEAN CORPUSCULAR HGB CONC 28 g/dl (33.0-37.0); MEAN PLATELET VOLUME 10.3 fl (7.4-10.4); MONO # 0.9 K/mm3 (0.1-0.6); MONO % 6.5 % (1.7-9.3); PLATELET COUNT 405 K/mm3 (130-400); RED BLOOD COUNT 4.13 M/mm3 (4.10-5.30); REDCELL DISTRIBUTION WIDTH-CV 17.5 % (11.5-14.5)
[2022-01-08 06:55] LABS: INR 1.5 (0.8-3.0); PROTHROMBIN TIME 16.8 SECONDS (9.7-12.8)
[2022-01-08 07:01] LABS: ALBUMIN 2.7 gm/dL (3.5-5.0); BILIRUBIN,TOTAL 1.6 mg/dL (0.2-1.2); CALCIUM 8.5 mg/dL (8.4-10.2); CREATININE, serum 1.07 mg/dL (0.57-1.11); HEMOGLOBIN 8.4 g/dl (12.5-16.0); MEAN CORPUSCULAR HEMOGLOBIN 20 pg (27-31); POTASSIUM 3.8 mmol/L (3.5-4.5)
[2022-01-09 03:09] VITALS: BP 95/51; PULSE 62; TEMP 97.6
[2022-01-09 06:52] LABS: BASO # 0.1 K/mm3 (0.0-0.2); BASO % 0.8 % (0.0-2.0); EOS # 0.3 K/mm3 (0.0-0.7); GRAN # 10.3 K/mm3 (1.4-6.5); GRAN % 82.5 % (42.2-75.2); LYMPH # 1.1 K/mm3 (1.2-3.4); LYMPH % 8.6 % (20.0-51.0); MEAN CELL VOLUME 75 fl (80.0-100.0); MEAN CORPUSCULAR HGB CONC 28 g/dl (33.0-37.0); MEAN PLATELET VOLUME 10.3 fl (7.4-10.4); MONO # 0.7 K/mm3 (0.1-0.6); MONO % 5.3 % (1.7-9.3); PLATELET COUNT 373 K/mm3 (130-400); RED BLOOD COUNT 3.94 M/mm3 (4.10-5.30); REDCELL DISTRIBUTION WIDTH-CV 17.8 % (11.5-14.5)
[2022-01-09 06:54] LABS: HEMATOCRIT 29.4 % (37.0-47.0); HEMOGLOBIN 8.3 g/dl (12.5-16.0); MEAN CORPUSCULAR HEMOGLOBIN 21 pg (27-31)
[2022-01-09 07:00] LABS: CALCIUM 8.8 mg/dL (8.4-10.2); CREATININE, serum 1.05 mg/dL (0.57-1.11); POTASSIUM 3.8 mmol/L (3.5-4.5)
[2022-01-09 07:03] LABS: PROTHROMBIN TIME 21.8 SECONDS (9.7-12.8)
[2022-01-09 07:20] VITALS: BP 100/61; PULSE 75; TEMP 97.3
[2022-01-09 11:10] VITALS: BP 83/51; PULSE 70; TEMP 97.5
[2022-01-09 16:00] VITALS: BP 97/52; PULSE 74; TEMP 97.6
[2022-01-09 16:20] LABS: CREATININE, serum 1.04 mg/dL (0.57-1.11); MAGNESIUM 2.1 mg/dL (1.6-2.6); POTASSIUM 4.1 mmol/L (3.5-4.5)
[2022-01-09 20:05] VITALS: BP 88/48; PULSE 74; TEMP 97.4
[2022-01-09 23:57] VITALS: BP 102/57; PULSE 75; TEMP 97.4
[2022-01-10 03:34] VITALS: BP 114/65; PULSE 80; TEMP 97.5
[2022-01-10 06:33] LABS: BASO # 0.1 K/mm3 (0.0-0.2); BASO % 0.8 % (0.0-2.0); EOS # 0.2 K/mm3 (0.0-0.7); EOS % 1.5 % (0.0-4.0); GRAN # 9.6 K/mm3 (1.4-6.5); GRAN % 84.8 % (42.2-75.2); LYMPH # 0.8 K/mm3 (1.2-3.4); LYMPH % 7.4 % (20.0-51.0); MEAN CELL VOLUME 74 fl (80.0-100.0); MEAN CORPUSCULAR HGB CONC 28 g/dl (33.0-37.0); MEAN PLATELET VOLUME 10.3 fl (7.4-10.4); MONO # 0.6 K/mm3 (0.1-0.6); PLATELET COUNT 440 K/mm3 (130-400); RED BLOOD COUNT 4.55 M/mm3 (4.10-5.30); REDCELL DISTRIBUTION WIDTH-CV 18.9 % (11.5-14.5)
[2022-01-10 06:39] LABS: HEMATOCRIT 33.7 % (37.0-47.0); HEMOGLOBIN 9.5 g/dl (12.5-16.0); MEAN CORPUSCULAR HEMOGLOBIN 21 pg (27-31)
[2022-01-10 06:47] LABS: CALCIUM 8.8 mg/dL (8.4-10.2); CREATININE, serum 0.98 mg/dL (0.57-1.11); POTASSIUM 3.4 mmol/L (3.5-4.5)
[2022-01-10 07:17] VITALS: BP 104/55; PULSE 84; TEMP 98
[2022-01-10 08:37] LABS: INR 2.6 (0.8-3.0); PROTHROMBIN TIME 29.3 SECONDS (9.7-12.8)
[2022-01-10 11:49] VITALS: BP 89/55; PULSE 70; TEMP 98
[2022-01-10 16:22] VITALS: BP 120/73; PULSE 75; TEMP 97.9
[2022-01-10 20:09] VITALS: BP 92/55; PULSE 80; TEMP 97.6
[2022-01-10 23:24] VITALS: BP 95/54; PULSE 76; TEMP 98.2
[2022-01-11 04:00] VITALS: BP 108/56; PULSE 78; TEMP 97.7
[2022-01-11 06:29] LABS: BASO # 0.1 K/mm3 (0.0-0.2); EOS # 0.2 K/mm3 (0.0-0.7); EOS % 1.9 % (0.0-4.0); GRAN # 8.2 K/mm3 (1.4-6.5); GRAN % 79.9 % (42.2-75.2); LYMPH # 1.1 K/mm3 (1.2-3.4); LYMPH % 10.5 % (20.0-51.0); MEAN CELL VOLUME 74 fl (80.0-100.0); MEAN CORPUSCULAR HGB CONC 28 g/dl (33.0-37.0); MONO # 0.6 K/mm3 (0.1-0.6); MONO % 6.1 % (1.7-9.3); PLATELET COUNT 444 K/mm3 (130-400); RED BLOOD COUNT 4.22 M/mm3 (4.10-5.30); REDCELL DISTRIBUTION WIDTH-CV 18.9 % (11.5-14.5)
[2022-01-11 06:33] LABS: INR 2.9 (0.8-3.0); PROTHROMBIN TIME 32.2 SECONDS (9.7-12.8)
[2022-01-11 06:42] LABS: HEMATOCRIT 31.2 % (37.0-47.0); HEMOGLOBIN 8.8 g/dl (12.5-16.0); MEAN CORPUSCULAR HEMOGLOBIN 21 pg (27-31)
[2022-01-11 06:45] LABS: CALCIUM 8.8 mg/dL (8.4-10.2); CREATININE, serum 0.95 mg/dL (0.57-1.11); POTASSIUM 3.6 mmol/L (3.5-4.5)
[2022-01-11 08:06] VITALS: BP 88/51; PULSE 75; TEMP 97.8
[2022-01-11 11:22] VITALS: BP 99/56; PULSE 69; TEMP 98.5
[2022-01-11] MEDS ORDERED: MONODOX100 PO (12:18)
[2022-01-11] MEDS ORDERED: COUMADIN 2MG2 MG/TAB PO (12:19)
[2022-01-11] MEDS ORDERED: LASIX 40MG TABL40 MG PO (12:21)
[2022-01-11] MEDS ORDERED: OXYGEN (14:34)
[2022-01-11 15:06] VITALS: BP 112/68; PULSE 83; TEMP 98.1
== END 2022-01-11 16:10 | disposition hospice, home (50) | DRG 291 ==
LOC: COL.ER 13:10 → SURG 16:49
PROVIDERS: Emergency Medicine; Internal Medicine; Physician Assistant; ADMIT Internal Medicine
DX: I50.23 Acute on chronic systolic (congestive) heart failure (principal); J96.01 Acute respiratory failure with hypoxia; J18.9 Pneumonia, unspecified organism; I24.0 Acute coronary thrombosis not resulting in myocardial infarction; I25.3 Aneurysm of heart; I25.10 Atherosclerotic heart disease of native coronary artery without angina pectoris; M79.7 Fibromyalgia; G40.909 Epilepsy, unspecified, not intractable, without status epilepticus; J45.909 Unspecified asthma, uncomplicated; I48.91 Unspecified atrial fibrillation; K21.9 Gastro-esophageal reflux disease without esophagitis; G47.00 Insomnia, unspecified; F41.9 Anxiety disorder, unspecified; Z66 Do not resuscitate; F17.210 Nicotine dependence, cigarettes, uncomplicated; E11.65 Type 2 diabetes mellitus with hyperglycemia; G43.909 Migraine, unspecified, not intractable, without status migrainosus; I25.5 Ischemic cardiomyopathy; I08.1 Rheumatic disorders of both mitral and tricuspid valves; D50.9 Iron deficiency anemia, unspecified; Z20.822 Contact with and (suspected) exposure to COVID-19; I25.2 Old myocardial infarction; Z86.73 Personal history of transient ischemic attack (TIA), and cerebral infarction without residual deficits; Z95.0 Presence of cardiac pacemaker; Z79.82 Long term (current) use of aspirin; Z79.84 Long term (current) use of oral hypoglycemic drugs; Z95.810 Presence of automatic (implantable) cardiac defibrillator
CPT/HCPCS: 99223-AI; 99232-AI; 99233-AI; 99239; J0696; J1815; J1940; J2260

== ENCOUNTER 2022-06-27 10:00 | Outpatient (RCR) | payer MEDICAID ==
[2005-08-08 19:04] VITALS: BP 100/63
[2022-06-25] VITALS (7 sets, daily range): BP systolic 83–98; BP diastolic 54–62; PULSE 96–100; TEMP 97.6
[2022-06-25 12:18] LABS: CALCIUM 9.7 mg/dL (8.4-10.2); CREATININE, serum 1.43 mg/dL (0.57-1.11); POTASSIUM 4.8 mmol/L (3.5-4.5)
--- NOTE | 2022-06-25 16:00 | NUR ---
I reviewed BMP result with Tabitha Rush, who advised that pt should continue her home medications as prescribed. No changes at this time based on her lab result. Pt is doing well with infusion. no complaints at this time.
--- NOTE | 2022-06-25 19:33 | NUR ---
Pt is doing well during her lasix infusion. She has remained awake and has been listening to some relaxing music in her room. Pt has had approx 300 cc measured urine output and an unmeasured void. Pt reports feels like is not producing as much urine as she expected, bladder US showed >400. I paged Dr. Dunham. Per Dr. Diehl it is okay to straight cath as needed to determine actual urine output. Pt does want a straight cath, states a catheter was used last time she received a diuretic infusion. Pt does reports legs feel softer, and is able to flex ankles more than prior to her arrival. Completion time tonight is 0830. Plan to dc iv. Appointments have been made for 06/27 and 07/01 at 1000.
--- NOTE | 2022-06-25 20:57 | NUR ---
Pt has been escorted to exit via wheelchair. She states has more mobility due to decrease in swelling in lower extremities. I did straight cath pt for 700 cc tamica urine, for a total of 900 cc out during this infusion. I also changed central line dressing, as tegaderm was peeling. pt has no acute concerns at time of departure. plan to see her again on at 1000 for another lasix infusion.
[~2022-06-27] VITALS: Ht 154.9 cm; Wt 65.5 kg
[2022-06-27] VITALS (8 sets, daily range): BP systolic 75–112; BP diastolic 45–91; PULSE 95–100; TEMP 98.6
[~2022-06-27 10:00] MED LIST changes: -ALBUTEROL1.25 MG/3 INH; +COUMADIN 2MG2 MG/TAB PO; +FERROUS SU325 MG/TAB PO; +IPRATROPIUM BROM3 M1 IH; +K-TAB20 PO; +LAXATIVE FOR WOM5 MG PO; +LIDODERM 5% PATC1 EA TP; +MASON NATURAL2000 IU PO; +MONODOX100 PO; +OXYGEN; -PROAIR DIGIHAL90 MCG INH; +PROAIR HFA0.09 MG/AC IH; +REQUIP 1MG T1 MG/TAB PO; -REQUIP0.25 MG PO; +UBRELVY50 MG PO
[2022-06-27 11:12] LABS: CALCIUM 9.3 mg/dL (8.4-10.2); CREATININE, serum 1.7 mg/dL (0.57-1.11); POTASSIUM 4.6 mmol/L (3.5-4.5)
--- NOTE | 2022-06-27 18:40 | NUR ---
Pt completed her 2nd IV lasix infusion at this time. PT has had urine output of 550 cc today. Pt was up to toilet x 1 and voided 125. A cleveland was placed per order from Dr. Diehl, and 425 cc drained into cleveland bag. Pt's condition today was different in that her oxygen sats were hovering 88-91% on room air, although pt initially stated did not feel too bad. Pt did develop some increased difficulty breathing during her stay, and I did apply oxygen per orders to keep sats>90. Spot checks on pt's room air sat showed as low as 83% with good waveform, while sleeping, and btw 85 and 91% while awake. I did call [facility] to update Tabitha Rush about pt's urine output, vitals, increased diff breathing. Dr. Diehl, on behalf of Tabitha came to see pt in her room. He ordered a cleveland cath and for pt to go home with a catheter, to ensure pt could void. Natalia RN spoke with Dr. Diehl to update Dr. Diehl on pt's sats, and Dr. Diehl was fine with pt being discharged. Natalia stated would be in contact with [facility] office in AM, to initiate conversation about having home oxygen available for patient. Pt's daughter and patient on board with this plan. Toward the end of the infusion, pt did get up into recliner, and this was a good position for her. Her sats were 88-93% on room air while up in chair, and pt was able to transfer to chair, and from chair to wheelchair with stand by assist. Pt plans to return for 3rd infusion on Friday07/01/22 at 1000. Pt and sister were given instructions to seek emergent care as needed.
--- NOTE | 2022-07-01 14:02 | NUR ---
pT DID NOT SHOW TO TODAY'S APT.pT IS AN INPT AT THIS HOSPITAL.
== END 2022-06-30 ==
LOC: EUO
PROVIDERS: Internal Medicine Cardiovascular Disease
DX: I50.23 Acute on chronic systolic (congestive) heart failure (principal)
CPT/HCPCS: J1940

== ENCOUNTER 2022-06-30 14:32 | Inpatient (IN) | payer MEDICAID ==
[~2022-06-30] VITALS: Ht 154.9 cm; Wt 68.2 kg
[2022-06-30 14:59] LABS: BASO # 0.1 K/mm3 (0.0-0.2); BASO % 0.7 % (0.0-2.0); EOS # 0.1 K/mm3 (0.0-0.7); GRAN # 8.2 K/mm3 (1.4-6.5); GRAN % 86.4 % (42.2-75.2); LYMPH # 0.5 K/mm3 (1.2-3.4); LYMPH % 5.1 % (20.0-51.0); MEAN CELL VOLUME 75 fl (80.0-100.0); MEAN CORPUSCULAR HGB CONC 27 g/dl (33.0-37.0); MEAN PLATELET VOLUME 10.2 fl (7.4-10.4); MONO # 0.6 K/mm3 (0.1-0.6); MONO % 6.4 % (1.7-9.3); PLATELET COUNT 255 K/mm3 (130-400); RED BLOOD COUNT 4.72 M/mm3 (4.10-5.30); REDCELL DISTRIBUTION WIDTH-CV 25.8 % (11.5-14.5)
[2022-06-30 15:00] LABS: HEMATOCRIT 35.4 % (37.0-47.0); HEMOGLOBIN 9.5 g/dl (12.5-16.0); MEAN CORPUSCULAR HEMOGLOBIN 20 pg (27-31)
[2022-06-30 15:22] LABS: ALBUMIN 3.3 gm/dL (3.5-5.0); BILIRUBIN,TOTAL 2.3 mg/dL (0.2-1.2); CALCIUM 9.1 mg/dL (8.4-10.2); CREATININE, serum 1.89 mg/dL (0.57-1.11); POTASSIUM 4.7 mmol/L (3.5-4.5); TOTAL PROTEIN 7.2 gm/dL (6.2-8.1)
[2022-06-30 15:27] LABS: TROPONIN-I 0.016 ng/mL (0.00-0.033)
[2022-06-30 17:21] LABS: PROTHROMBIN TIME 81.4 SECONDS (9.7-12.8)
[2022-06-30 17:22] LABS: INR 6.9 (0.8-3.0)
[2022-06-30 17:41] LABS: COLLECTION METHOD CLEAN CATCH
[2022-06-30 17:57] LABS: MUCOUS Present (NOT PRESENT); PH 5 (5-8); SQUAMOUS EPITHELIAL None Seen /hpf (0-10); URINE APPEARANCE Hazy (CLEAR/HAZY); URINE BACTERIA Many /hpf (NONE SEEN); URINE BLOOD 1+ (NEGATIVE); URINE COLOR Amber (YELLOW); URINE GLUCOSE Negative (NEGATIVE); URINE KETONE Trace (NEGATIVE); URINE NITRATE Negative (NEGATIVE); URINE PROTEIN(semi-quant) 1+ (NEGATIVE)
[2022-06-30 18:01] VITALS: BP 106/58; PULSE 95; TEMP 97.6
--- NOTE | 2022-06-30 20:00 | NUR ---
PATIENT IS A&O. NOTED SOFT B/P IN THE UPPER 80'S TO LOW 90'S SYSTOLIC, WHICH PATIENT REPORTS IS NORMAL FOR HER. ALL OTHER VSS ON TELE. 02 @ 3L PER NC TO KEEP SATS GREATER THAN 90% WHICH PATIENT ALSO REPORTS NORMAL FOR HER. PATIENT HAS EXTENSIVE HX OF CHF AND REPORT SHE GETS LASIX. RIGHT CHEST CENTRAL LINE TO INT. LEFT FORARM IV TO INT. NOTED BLE +2 EDEMA. WING TO DD WITH MOD AMOUNTS OF CLEAR YELLOW URINE. HEAD TO TOE ASSESSMENT COMPLETE, SEE CHARTING. HS MEDS GIVEN. NO OTHER NEEDS AT THIS TIME.
[2022-06-30 20:53] VITALS: BP 87/55; PULSE 58; TEMP 97.8
[2022-07-01] VITALS (7 sets, daily range): BP systolic 81–97; BP diastolic 42–56; PULSE 90–97; TEMP 97.6–98.4
[2022-07-01 07:16] LABS: CALCIUM 8.8 mg/dL (8.4-10.2); CREATININE, serum 1.93 mg/dL (0.57-1.11); MAGNESIUM 2.4 mg/dL (1.6-2.6); POTASSIUM 4.3 mmol/L (3.5-4.5)
[2022-07-01 07:28] LABS: INR 7.4 (0.8-3.0); PROTHROMBIN TIME 86.6 SECONDS (9.7-12.8)
--- NOTE | 2022-07-01 08:05 | NUR ---
CALLED CRITICAL LAB[facility] TO DR JAMES
[2022-07-01 13:23] LABS: COLLECTION METHOD IN
[2022-07-01 13:36] LABS: MUCOUS Present (NOT PRESENT); PH 5 (5-8); SQUAMOUS EPITHELIAL 0-2 /hpf (0-10); URINE APPEARANCE Cloudy (CLEAR/HAZY); URINE BACTERIA Moderate /hpf (NONE SEEN); URINE BLOOD 3+ (NEGATIVE); URINE COLOR Amber (YELLOW); URINE GLUCOSE Negative (NEGATIVE); URINE KETONE Trace (NEGATIVE); URINE NITRATE Negative (NEGATIVE); URINE PROTEIN(semi-quant) 2+ (NEGATIVE); URINE RBC >50 /hpf (0-2)
--- NOTE | 2022-07-01 13:38 | NUR ---
Initial visit; Patient having a late lunch, Bulk Mail Clerk spoke with her briefly and commented on her beautiful name. Bulk Mail Clerk asked if she could keep patient in her prayers to which she responded, "Yes, please." Bulk Mail Clerk intends to keep Yumiko in her prayers.
--- NOTE | 2022-07-01 13:44 | NUR ---
Luis and palliative care RN Inna met with patient this morning to discuss goals of care. Patient is currently living at home alone and reports to having no difficulty caring for herself. Patient reports that she is independent with all of her ADL's and utilizes a rollator walker to assist with ambulation. Patient is currently on NC oxygen at rest but verbalizes that she does not utilize oxygen at home. PCP is and is now assigned to for cardiology. Patient utilizes [facility] pharmacy in [place] for medications. She is established with [facility]. Patient would like to return home once ready. Patient on the phone with her daughter who is currently incarcerated in [place]. All of her daughters questions are answered. Patient's sister Gissell ([phone]) contacted. Gissell states that she will stop by the patients home a few times a week to check in on her but that the patient has been able to maintain living at home ok on her own. She states the patient's leg weakness is new but does not have any other concerns. Discharge plan:Home/ having palliative care talks.
--- NOTE | 2022-07-01 14:41 | NUR ---
Met with patient this morning along with ROOSEVELT. Patient's daughter was on the phone. Patient and her daughter had many questions about the plan of care but care team had not rounded yet. I told them we would check back. Yumiko stated that she feels fine being at home and that she wants to go back home. Later met with patient and her sister, Gissell, at bedside. Gissell was able to explain the patient's response to her milrinone and current treatment plans (lasix infusion, double port placement, etc.). Gissell had questions about facility living for the patient as Yumiko is adamant to have her dog but also concerned about finances. Gissell and Jordycirilo had questions again about the plan of care, so I clarified as best I could. Gissell had to leave but I offered my contact information and we plan to talk again tomorrow.
--- NOTE | 2022-07-01 20:00 | NUR ---
PATIENT IS ORIENTED BUT SEEMS DROWSY THIS EVENING WHILE TRYING TO FINISH SUPPER. NOTED SOFT B/P IN THE UPPER 80'S TO LOW 90'S SYSTOLIC, WHICH PATIENT REPORTS IS NORMAL FOR HER. ALL OTHER VSS ON TELE. 02 @ 3L PER NC TO KEEP SATS GREATER THAN 90% WHICH PATIENT ALSO REPORTS NORMAL FOR HER. PATIENT HAS EXTENSIVE HX OF CHF. RIGHT CHEST CENTRAL LINE TO INT. LEFT FORARM IV TO INT. NOTED BLE +2 EDEMA. MACIEJ DC'D TODAY, WILL MONITOR OUTPUT. HEAD TO TOE ASSESSMENT COMPLETE, SEE CHARTING. HS MEDS GIVEN. NO OTHER NEEDS AT THIS TIME.
[2022-07-02] VITALS (7 sets, daily range): BP systolic 83–103; BP diastolic 42–59; PULSE 88–103; TEMP 97.6–98.1
[2022-07-02 05:56] LABS: BASO # 0.1 K/mm3 (0.0-0.2); BASO % 0.7 % (0.0-2.0); EOS # 0.1 K/mm3 (0.0-0.7); EOS % 1.4 % (0.0-4.0); GRAN # 5.7 K/mm3 (1.4-6.5); GRAN % 79.5 % (42.2-75.2); LYMPH # 0.6 K/mm3 (1.2-3.4); LYMPH % 8.2 % (20.0-51.0); MEAN CELL VOLUME 75 fl (80.0-100.0); MEAN CORPUSCULAR HGB CONC 27 g/dl (33.0-37.0); MEAN PLATELET VOLUME 9.9 fl (7.4-10.4); MONO # 0.7 K/mm3 (0.1-0.6); MONO % 9.8 % (1.7-9.3); PLATELET COUNT 230 K/mm3 (130-400); RED BLOOD COUNT 4.43 M/mm3 (4.10-5.30); REDCELL DISTRIBUTION WIDTH-CV 25.3 % (11.5-14.5)
[2022-07-02 05:58] LABS: HEMATOCRIT 33.2 % (37.0-47.0); HEMOGLOBIN 8.9 g/dl (12.5-16.0); MEAN CORPUSCULAR HEMOGLOBIN 20 pg (27-31)
[2022-07-02 06:05] LABS: INR 4.4 (0.8-3.0)
[2022-07-02 06:08] LABS: PROTHROMBIN TIME 51.4 SECONDS (9.7-12.8)
[2022-07-02 06:14] LABS: CALCIUM 8.8 mg/dL (8.4-10.2); CREATININE, serum 1.98 mg/dL (0.57-1.11); POTASSIUM 5.1 mmol/L (3.5-4.5)
--- NOTE | 2022-07-02 10:37 | NUR ---
SW and I attempted to talk with patient but she kept falling asleep. Call placed to patient's sister, Gissell. She stated that she won't be in until after 1pm today. Updated her on patient condition and inability to hold conversation. Gissell confirmed that she will be reachable via phone if need be. Provided my contact #, SW contact # and surgical unit desk # for family to contact since the patient can't answer the phone currently. Notified primary RN of conversations as well.
--- NOTE | 2022-07-02 13:03 | NUR ---
PATIENT AROUSABLE, VERY DROWSY, DOES NOT RESPOND TO STIMULI. ASSESSMENT PERFORMED. AM MEDS ADMINISTERED. PATIENT ON 2L PER NC. PATIENT NONCOMPLIANT WITH OXYGEN USE. TWO BOTTLES AND ONE MEDICATION DISPENSER OF PATIENT'S HOME MEDICATION FOUND IN BED THE DAY PRIOR. UNKNOWN IF PATIENT TOOK MEDICATION, PATIENT DENIES TAKING ANY HOME MEDS WHILE IN HOSPITAL. MEDICATION SENT TO PHARMACY. PATIENT MORE DROWSY AND LESS ALERT TODAY. BED ALARM ON, CALL LIGHT WITHIN REACH.
--- NOTE | 2022-07-02 13:21 | NUR ---
jet worker attended rounding this morning. Patient attempting to eat breakfast but was unable to hold and fork or manually feed herself. SW and palliative care RN Inna attempted to meet with patient later in the morning. Patient somnolent with her hand in her food. Phone all made to Gissell with these changes.
--- NOTE | 2022-07-02 14:28 | NUR ---
Called to patient room as patient is still very somnolent. Hospitalist and primary RN at bedside. Plan for new testing. Call made to patient's sister, Gissell, with update as well. She is enroute from [place] and will call me when she gets here as there was a possible transfer to ICU pending results and further discussions. Hospitalist also called Gissell and along with patient's daughter, decided to make her a DNR. Primary nurse and SW aware of conversations as well.
[2022-07-02 14:34] LABS: ARTERIAL BLD GAS O2 SATURATION 94.1 % (92-100); ARTERIAL BLOOD GAS BASE EXCESS -4.8 (-2-2); ARTERIAL BLOOD GAS HCO3 21.6 meq/L (22-26); ARTERIAL BLOOD GAS PCO2 45.9 mmHg (35-45); ARTERIAL BLOOD GAS PO2 74.8 mmHg (80-100); ARTERIAL BLOOD GAS pH 7.29 (7.35-7.45)
--- NOTE | 2022-07-02 16:05 | NUR ---
Patient sister Gissell arrives to the unit. Hospitalist, palliative care RN and myself meet with Gissell to discuss plan of care. Education on the patients condition and poor prognosis verbalizes to Gissell by MD. Gissell is encouraged to reach out to the patient's daughter as the teams fear is the patient is nearing the end.
--- NOTE | 2022-07-02 19:27 | NUR ---
TX GIVEN INLINE WITH BIPAP, TOLERATED WELL.
[2022-07-02 20:02] LABS: ARTERIAL BLD GAS O2 SATURATION 99.1 % (92-100); ARTERIAL BLD GAS TCO2 CT 23.3; ARTERIAL BLOOD GAS BASE EXCESS -5.6 (-2-2); ARTERIAL BLOOD GAS HCO3 21.7 meq/L (22-26); ARTERIAL BLOOD GAS PCO2 51.4 mmHg (35-45); ARTERIAL BLOOD GAS pH 7.24 (7.35-7.45)
[2022-07-02 20:03] LABS: ARTERIAL BLOOD GAS PO2 151.1 mmHg (80-100)
--- NOTE | 2022-07-02 20:49 | NUR ---
VERBAL ORDER FROM ANDREA RODRIGUEZ. OKAY TO TRIAL PT OFF BIPAP AND PLACE ON ETCO2 MONITOR. PT TAKEN OFF BIPAP AND PLACED ON ETCO2 MONITOR AT THIS TIME ORDERED. ETCO2 READING 51 WHEN BIPAP FIRST TAKEN OFF. ETCO2 READING 42 5 MINUTES OFF OF BIPAP. PT TOLERATING WELL.
--- NOTE | 2022-07-03 02:25 | NUR ---
PATIENT IN BED ON ROOM ENTRY. RESPONDS OCCASIONALLY TO STERNAL RUBS BUT IS NOT ABLE TO TALK ONLY GRUNTS. PATIENT WAS ON BIPAP AT START OF SHIFT BUT CHANGED OVER TO NC BY RT, PATIENTS O2 NEEDS CONTINUED TO INCREASE AND PATIENT IS CURRENTLY ON 10 L HIGH FLOW NASAL CANNULA.
--- NOTE | 2022-07-03 04:17 | NUR ---
0345: PATIENTS 02 SATS CONTINUE TO DECREASE. NOTIFIED PAVITHRA MENDEZ. RT AT BEDSIDE SWITCHING PATIENT BACK TO BIPAP. PATIENT STOPPED BREATHING. NO PULSE. PAVITHRA MENDEZ AT BEDSIDE. PRONOUNCED TIME OF 035. FAMILY NOTIFIED BY PAVITHRA MENDEZ. PATIENT CLEANED, ALL MEDICAL DEVICES REMOVED, R CHEST PORT LEFT IN TACT. LINENS AND GOWN CHANGED. AWAITING FAMILY.
--- NOTE | 2022-07-03 04:22 | NUR ---
ANDREA Smith notified of increase in O2 requirement. No new orders at this time.
--- NOTE | 2022-07-03 04:37 | NUR ---
[facility] notified of TOD 0350, 07-03-22. Dispostion pending communication with family. Reference #[id number].
--- NOTE | 2022-07-03 08:22 | NUR ---
SW notified of patients . Staff attempted to contact family overnight and was able to get ahold of her estranged daughter to notify of passing. SW attempted to contact the patient's sister Gissell and unable to get ahold of. Message left for Gissell to call this SW as soon as possible to arrange which home she would like to go with.
--- NOTE | 2022-07-03 09:03 | NUR ---
supervisor park workers attempted to contact the patients sister for the second time and was unsuccessful. [employer] contacted to perform a wellness check and to make contact with Gissell.
--- NOTE | 2022-07-03 09:22 | NUR ---
Received call from patient's sister, Gissell. Was on the other line so she left message. Attempted to call back and was sent to [facility].
--- NOTE | 2022-07-03 09:30 | NUR ---
Family would like to use [facility], [employer] was notified, we may release body when family is ready.
--- NOTE | 2022-07-03 12:10 | NUR ---
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
--- NOTE | 2022-07-03 13:09 | NUR ---
room worker received phone call from officer who completed wellfare check who states that he was able to make contact with Gissell. Gissell calls unit and this SW spoke with her about the patient's passing and what home she would like. Gissell states that the patient has mentioned in the past that she would like to be cremated through [facility]. Gissell reports that she would like to come up and see the patient as well as gather her things to take home. airline managerial supervisor and supervisor in charge notified.
--- NOTE | 2022-07-03 16:00 | NUR ---
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
== END 2022-07-03 16:00 | disposition expired | DRG 291 ==
LOC: COL.ER 14:32 → SURG 16:31
PROVIDERS: Nurse Practitioner Primary Care; Physician Assistant; ADMIT Internal Medicine
DX: I50.23 Acute on chronic systolic (congestive) heart failure (principal); J96.01 Acute respiratory failure with hypoxia; N17.9 Acute kidney failure, unspecified; I25.3 Aneurysm of heart; G93.40 Encephalopathy, unspecified; N39.0 Urinary tract infection, site not specified; Z66 Do not resuscitate; E86.0 Dehydration; Z51.5 Encounter for palliative care; M79.7 Fibromyalgia; G40.909 Epilepsy, unspecified, not intractable, without status epilepticus; I95.9 Hypotension, unspecified; J45.909 Unspecified asthma, uncomplicated; I25.10 Atherosclerotic heart disease of native coronary artery without angina pectoris; K21.9 Gastro-esophageal reflux disease without esophagitis; G47.00 Insomnia, unspecified; D50.9 Iron deficiency anemia, unspecified; G43.909 Migraine, unspecified, not intractable, without status migrainosus; F41.9 Anxiety disorder, unspecified; Z20.822 Contact with and (suspected) exposure to COVID-19; F17.210 Nicotine dependence, cigarettes, uncomplicated; I48.91 Unspecified atrial fibrillation; E11.9 Type 2 diabetes mellitus without complications; R31.9 Hematuria, unspecified; I25.5 Ischemic cardiomyopathy; E87.5 Hyperkalemia; I46.9 Cardiac arrest, cause unspecified; I25.2 Old myocardial infarction; Z90.49 Acquired absence of other specified parts of digestive tract; Z95.0 Presence of cardiac pacemaker; Z90.89 Acquired absence of other organs; Z98.51 Tubal ligation status; Z88.8 Allergy status to other drugs, medicaments and biological substances; Z88.1 Allergy status to other antibiotic agents; Z91.041 Radiographic dye allergy status; Z91.040 Latex allergy status; Z79.82 Long term (current) use of aspirin; Z79.01 Long term (current) use of anticoagulants
CPT/HCPCS: J0696; J2260; J7040